=== PATIENT | female | born 1975 | race Native Hawaiian/Other Pacific Islander ===

== ENCOUNTER 2017-03-26 02:08 | Observation (INO) | payer OTHER ==
[2017-03-26 02:13] VITALS: O2SAT 100
[2017-03-26] MEDS ORDERED: Sodium Chloride 0.9% 1,000 ML IV STA ×2 (04:20→06:03)
[2017-03-26 04:24] LABS: BASO % 0.1 % (0.0-2.0); EOS % 0.3 % (0.0-4.0); HEMOGLOBIN 10.7 g/dL (12.0-16.0); LYMPH # 0.3 K/uL (1.0-4.3); LYMPH % 12.9 % (20.0-40.0); MEAN CELL VOLUME 109.5 fl (81.0-99.0); MEAN CORPUSCULAR HEMOGLOBIN 37.3 pg (27.0-31.0); MEAN CORPUSCULAR HGB CONC 34.1 g/dL (33.0-37.0); MEAN PLATELET VOLUME 8.7 fl (7.2-11.7); MONO # 0.1 K/uL (0.0-0.8); MONO % 7.1 % (0.0-10.0); NEUT # 1.6 K/uL (1.8-7.0); NEUT % 79.6 % (50.0-75.0); NRBC % 4.4 % (0.0-0.0); RBC 2.87 Mil/uL (3.80-5.20); RED CELL DISTRIBUTION WIDTH 19.9 % (11.5-14.5)
[2017-03-26 04:28] LABS: BLOOD UREA NITROGEN 31 mg/dl (7-17); GFR AFRICAN-AMERICAN > 60; GFR NON-AFRICAN AMERICAN > 60
[2017-03-26 04:29] LABS: CALCIUM 9.5 mg/dL (8.4-10.2)
--- NOTE | 2017-03-26 04:33 | ED PDOC ---
HPI: Nose Bleed Time Seen by Provider: 03/26/17 02:15 Chief Complaint (Nursing): ENT Problem Chief Complaint (Provider): ENT Problem History Per: Patient History/Exam Limitations: no limitations Onset/Duration Of Symptoms: Hrs (One) Location Of Bleeding: Left Nare Symptoms Have Been: Episodic Severity: Mild Associated Symptoms: denies: Syncope, Lightheadedness Anticoagulant/Antiplatlet Use?: Yes (Xarelto) Additional Complaint(s): 41 y/o female patient presenting to the ED with nosebleed. PT states that the nosebleed began an hour prior to arrival and the bleeding was spontaneous and non-trauma related. Patient denies syncope, dizziness or lightheadedness. Past medical history includes Hodgkin's lymphoma and the patient takes Xarelto. Past Medical History Reviewed: Historical Data, Nursing Documentation, Vital Signs Vital Signs: Last Vital Signs Temp 98 F 03/26/17 02:10 Pulse 150 H 03/26/17 02:10 Resp 18 03/26/17 02:10 BP 111/76 03/26/17 02:10 Pulse Ox 100 03/26/17 02:10 - Medical History Other PMH: Hodgkin's lymphoma - Family History Family History: States: Unknown Family Hx - Home Medications Home Medications: Ambulatory Orders Medication Instructions Recorded Amoxicillin/Clavulanate [Augmentin 1 tab PO BID 5 Days 03/26/17 875 MG-125 MG] - Allergies Allergies/Adverse Reactions: Allergies Allergy/AdvReac Type Severity Reaction Status Date / Time celecoxib [From Celebrex] Allergy RASH Verified 03/26/17 02:10 Review of Systems ROS Statement: Except As Marked, All Systems Reviewed And Found Negative ENT: Positive for: Nose Discharge ((+)Spontaneous Nose-Bleeding (-)Trauma) Physical Exam - Reviewed Nursing Documentation Reviewed: Yes Vital Signs Reviewed: Yes - Physical Exam Appears: Positive for: Non-toxic, No Acute Distress Head Exam: Positive for: ATRAUMATIC, NORMAL INSPECTION, NORMOCEPHALIC Skin: Positive for: Normal Color, Warm, Dry Eye Exam: Positive for: Normal appearance ENT: Positive for: Other ((+)Active left nare bleeding.) Neck: Positive for: Normal, Painless ROM, Supple Cardiovascular/Chest: Positive for: Tachycardia Respiratory: Positive for: Normal Breath Sounds. Negative for: Wheezing, Respiratory Distress Extremity: Positive for: Normal ROM Neurologic/Psych: Positive for: Alert, Oriented, Other ((+)Ill-appearing and pale). Negative for: Motor/Sensory Deficits - Laboratory Results Result Diagrams: 03/26/17 04:18 03/26/17 04:18 - ECG O2 Sat by Pulse Oximetry: 100 (RA) Pulse Ox Interpretation: Normal Medical Decision Making Medical Decision Making: Time: 411 Initial impression: Epistaxis in setting of Anticholinergic. Initial plan: --TYPE AND SCREEN --BMP --CBC --CBC --PARTIAL THROMBOPLASTIN --PROTHROMBIN --SODIUM CHLORIDE 6AM: After insertion of rhino-rocket, patient's bleeding has completely ceased. Patient sitting comfortably in bed, pain medications offered but patient declining at this time. HR in 120s, which is baseline. Spoke with Dr. Chin who states that patient only requires transfusion of platelets and not PRBCs and that patient can be safely discharged home afterwards, states that patient's baseline HR is 120-130s. Xaraleto to be held. Will definitely r/o DIC with LFT 's and fibrinogen. Patient states she feels fine and would like to go home. Discussed admission with patient and she declines at this time. Pt. to receive single donor platelets, one unit. Will transfer care to Dr. Holloway to followup confirmatory bloodwork. Scribe Attestation: Documented by Minnie Chatman, acting as a scribe for Claus Ruiz MD. Scribe Attestation: All medical record entries made by the Scribe were at my direction and personally dictated by me. I have reviewed the chart and agree that the record accurately reflects my personal performance of the history, physical exam, medical decision making, and the department course for this patient. I have also personally directed, reviewed, and agree with the discharge instructions and disposition. Disposition - Clinical Impression Clinical Impression: Thrombocytopenia, Epistaxis - Patient ED Disposition Is Patient to be Admitted: No - Disposition Referrals: Ge Amin MD [Staff Provider] - Disposition: Transfer of Care Disposition Time: 07:01 Condition: STABLE Prescriptions: Amoxicillin/Clavulanate [Augmentin 875 MG-125 MG] 1 tab PO BID 5 Days Instructions: Thrombocytopenia (ED), Nosebleed (ED) Patient Signed Over To: Alexandra Holloway Handoff Comments: f/u labs, dc/ home if normal
[2017-03-26 04:53] LABS: PARTIAL THROMBOPLASTIN TIME 32.4 Seconds (25.6-37.1); PROTHROMBIN TIME 11.8 Seconds (9.8-13.1)
--- NOTE | 2017-03-26 07:33 | ED PDOC ---
- Laboratory Results Result Diagrams: 03/26/17 13:00 03/26/17 04:18 - ECG O2 Sat by Pulse Oximetry: 100 (RA) Pulse Ox Interpretation: Normal Medical Decision Making Medical Decision Making: Receiving Sign Out: Patient signed out to me by Dr. Ruiz at 0700 pending labs and final disposition. Scribe Attestation: Documented by Tessa Melendez acting as a scribe for Alexandra Holloway MD. Provider Attestation: All medical record entries made by the Scribe were at my direction and personally dictated by me. I have reviewed the chart and agree that the record accurately reflects my personal performance of the history, physical exam, medical decision making, and the department course for this patient. I have also personally directed, reviewed, and agree with the discharge instructions and disposition. 1.45p - patient feeling okay. repeat platelets improved. Understands the need to followup with PMD in [facility] and with ENT. Disposition Doctor Will See Patient In The: Office - Clinical Impression Clinical Impression: Thrombocytopenia, Epistaxis - POA Present On Arrival: None - Disposition Disposition: Routine/Home Disposition Time: 13:50 Condition: STABLE ED OBSERVATION Date of observation admission: 03/26/17 Time of observation admission: 07:25 - Observation admission statement Patient is being placed in observation because:: pending platelet transfusion and repeat labs - Progress Note Progress Note: 03/26/17 11:08 feeling okay. anxious to go home. platelet infusion in progress. Will repeat platelet count after transfusion and then discharge
[2017-03-26 08:04] LABS: BASO % 0.1 % (0.0-2.0); EOS % 0.6 % (0.0-4.0); HEMOGLOBIN 9.4 g/dL (12.0-16.0); LYMPH # 0.3 K/uL (1.0-4.3); MEAN CELL VOLUME 109.2 fl (81.0-99.0); MEAN CORPUSCULAR HEMOGLOBIN 37.7 pg (27.0-31.0); MEAN CORPUSCULAR HGB CONC 34.5 g/dL (33.0-37.0); MEAN PLATELET VOLUME 8.5 fl (7.2-11.7); MONO # 0.2 K/uL (0.0-0.8); MONO % 8.9 % (0.0-10.0); NEUT # 1.4 K/uL (1.8-7.0); NEUT % 76.4 % (50.0-75.0); NRBC % 2.9 % (0.0-0.0); RBC 2.48 Mil/uL (3.80-5.20); RED CELL DISTRIBUTION WIDTH 20.4 % (11.5-14.5)
[2017-03-26 08:23] LABS: WHITE BLOOD COUNT 1.8 K/uL (4.8-10.8)
[2017-03-26 08:28] LABS: ALB/GLOB RATIO 1.3 (1.0-2.1); ALBUMIN 3.3 g/dL (3.5-5.0); BILIRUBIN,DIRECT 0.4 mg/ml (0.0-0.4)
[2017-03-26 09:00] VITALS: RESP 20
[2017-03-26 14:22] VITALS: BP 131/84; PULSE 115; TEMP 98.1
== END 2017-03-26 13:53 | disposition home or self-care (01) ==
LOC: H.ER 02:08 → H.EROBSV 07:25
PROVIDERS: ADMIT Emergency Medicine; ATTEND Emergency Medicine
DX: D69.6 Thrombocytopenia, unspecified (principal); R04.0 Epistaxis; Z85.71 Personal history of Hodgkin lymphoma